=== PATIENT | female | born 1945 | race Caucasian/White ===

== ENCOUNTER 2017-01-11 18:07 | Observation (INO) | payer MEDICARE, OTHER ==
[~2017-01-11] VITALS: Ht 157.5 cm; Wt 87.3 kg
--- NOTE | ~2017-01-11 | CN ---
Consultation Report [facility] [address] [place]. [address] NAME: RAEGAN SUAZO : 49 STATUS : ADM Zelda PAT#: [id number] AGE: 71 ADM/REG DATE : 01/11/17 MR#: [id number] REPORT SERV DATE: 01/12/17 DICTATED BY: MICKIE AGEE DATE: 01/12/17 REPORT STATUS : Draft TRANSCRIBED BY: MODL DATE: 01/12/17 CARDIOLOGY CONSULTATION DATE OF CONSULTATION: 01/12/2017 REASON FOR CONSULTATION: Paroxysmal atrial fibrillation. HISTORY OF PRESENT ILLNESS: The patient is a 71-year-old female without known cardiac disease, who has had a one-week history of cold and flu-like symptoms with severe headache. She was seen by her primary care physician yesterday, who ordered a CT scan of the head due to headaches. While undergoing outpatient CAT scan, she had two syncopal episodes at [facility]. An electrocardiogram demonstrated atrial fibrillation with rapid ventricular rate. She was transferred to [facility] to the Hospitalist Service and consultation requested. In the interim, she has spontaneously converted to sinus rhythm. The patient denies any prior history of chest pain, palpitations, presyncope, or syncope. She denies dyspnea on exertion. The patient reports a two-week history of flu- like symptoms. These symptoms have essentially resolved by the time of admission. She is currently asymptomatic and feels well. PAST MEDICAL HISTORY: 1. Hypertension. 2. Diabetes mellitus. PAST SURGICAL HISTORY: No previous surgeries. SOCIAL HISTORY: Denies previous tobacco, alcohol, or illicit drug use. FAMILY HISTORY: Noncontributory. ALLERGIES: NO KNOWN DRUG ALLERGIES. HOME MEDICATIONS: Losartan and pioglitazone. REVIEW OF SYSTEMS: Negative for all organ systems, except per the history of present illness. PHYSICAL EXAMINATION: VITAL SIGNS: Pulse 68, blood pressure 131/66, respirations 12 and unlabored, saturating 94% on room air, weight 87 kg. GENERAL: Overweight elderly female, in no acute distress. HEENT: Normal. NECK: Supple. No JVD or bruit. Normal carotid upstroke bilaterally. No thyromegaly. LUNGS: Clear to auscultation and percussion. No wheezes, rales or rhonchi. No use of accessory muscles. Consultation Report [facility] [address] [place]. [address] NAME: RAEGAN SUAZO : 49 STATUS : ADM Zelda PAT#: [id number] AGE: 71 ADM/REG DATE : 01/11/17 MR#: [id number] REPORT SERV DATE: 01/12/17 DICTATED BY: MICKIE AGEE DATE: 01/12/17 REPORT STATUS : Draft TRANSCRIBED BY: MODRj DATE: 01/12/17 CARDIOLOGY: Regular rhythm. Normal S1, S2. No thrill. No murmur, rubs, or gallops. Normal PMI. ABDOMEN: Bowel sounds positive. Soft, nontender, and nondistended. No masses or aortic bruits. No hepatosplenomegaly or hepatojugular reflux. EXTREMITIES: No edema. Normal pulses. No clubbing or cyanosis. SKIN: Warm and dry. No significant rash. NEUROLOGIC: Alert and oriented x 3. Appropriate mood. LABORATORY DATA: Sodium 134, potassium 4, chloride 101, BUN 14, creatinine 0.68, glucose 119, magnesium 1.9. WBC 6.5; hemoglobin 11.6; hematocrit 34.2; platelets 268,000. Thyroid- stimulating hormone 3.03. EKG: EKG this morning, sinus rhythm at a rate of 71 beats per minute. Nonspecific T-wave changes are noted. Electrocardiogram performed at [facility] demonstrating atrial fibrillation with rapid ventricular rate at 156 beats per minute on presentation to that facility. IMPRESSION: Paroxysmal atrial fibrillation-now/currently in sinus rhythm with spontaneous conversion. Hemodynamically stable. CHADS2-VASc score is 4 (1 age, 1 gender, 1 diabetes mellitus, 1 hypertension). We have recommended chronic anticoagulation. In evaluation with her pharmacist, the novel oral anticoagulants are cost prohibitive. We therefore will begin warfarin. Due to her stroke risk score, we will begin weight-based Lovenox subcutaneous anticoagulation as a bridge with initiation of warfarin. The patient is hemodynamically and otherwise stable at this time. No contraindication to discharge today from a cardiovascular standpoint. She will follow up with Dr. Agee at [facility] on 02/01/2017 at 11:15 a.m. She will be scheduled in the [facility] for 01/16/2017 at 2:40 p.m. She has received my business card and has been made aware to contact me should she have any interval issues prior to her followup appointments. Her discharge medications in addition to the Lovenox bridge and warfarin 5 mg daily will also include carvedilol 6.25 mg b.i.d. Thank you for the opportunity to see the patient in consultation. MAURICIO/MANUELTIO Taylor Agee M.D. / [id number] CC: MD Lynda Chapman M.D.
--- NOTE | ~2017-01-11 | HP ---
History And Physical [facility] [address] [place]. [address] NAME: RAEGAN SUAZO : 49 STATUS : ADM Zelda PAT#: [id number] AGE: 71 ADM/REG DATE : 01/11/17 MR#: [id number] REPORT SERV DATE: 01/11/17 DICTATED BY: MOUNA ENAMORADO DATE: 01/11/17 REPORT STATUS : Draft TRANSCRIBED BY: MODRj DATE: 01/11/17 DATE OF ADMISSION: 01/11/2017 CHIEF COMPLAINT: Dizziness and elevated heart rate. HISTORY OF PRESENT ILLNESS: The patient is a 71-year-old female with past medical history of hypertension and prediabetes who comes in after having one-week history of flu, headache. Was sent for a CT by her PCP. Coming out of CT, noted to have two passing out episodes and heart rate up in the 150s. The patient's blood pressure was hypotensive at that time. The patient resolved pretty quickly. Was evaluated in the emergency room, improved with Cardizem p.o., and rate was converted. The patient requested to be transferred to [facility] secondary to campaign director, Dr. Qureshi. Upon further questioning, the patient reports that her flu has essentially been resolved, but has had decreased p.o. intake over the last week or two. Was told she may have had a urinary tract infection and also treated at an outside facility. Blood pressure and syncope episodes have all improved since heart rate is improved. Does have family history of heart issues on mother's side, but has never had this similar episode in the past. No chest pain. No shortness of breath currently. Did have headaches which are resolving. No nausea, vomiting, or diarrhea. Symptoms were improved after having Cardizem dose. Symptoms worsen with activity. The patient denies any swelling or coughing currently. REVIEW OF SYSTEMS: For additional 10-point review of systems, negative except for that noted in the HPI. PAST MEDICAL HISTORY: Diabetes and hypertension. SURGICAL HISTORY: None. Has had two natural deliveries. SOCIAL HISTORY: No smoking, alcohol, or illicits. Accompanied by at bedside. [place] and tries to live a healthy life. FAMILY HISTORY: Does have history of heart disease. ALLERGIES: NO KNOWN DRUG ALLERGIES. HOME MEDICATIONS: Actos and losartan. PHYSICAL EXAMINATION: VITAL SIGNS: Blood pressure last reported was 107/50s, current heart rate 78, respirations 14, afebrile, 100% on room air. GENERAL: No acute distress. Calm, pleasant, well developed, well nourished. EYES: No scleral icterus. EOMI. ENT: Nares patent. Tongue midline. Mildly dry mucous membranes. CHEST: Equal chest expansion. RESPIRATORY: Clear to auscultation. No wheezes or rales. CV: Regular rate. No rubs or gallops. 1:1 beat pulse ratio. No pedal edema. History And Physical [address] [address] NAME: RAEGAN SUAZO : 49 STATUS : ADM Zelda PAT#: [id number] AGE: 71 ADM/REG DATE : 01/11/17 MR#: [id number] REPORT SERV DATE: 01/11/17 DICTATED BY: MOUNA ENAMORADO DATE: 01/11/17 REPORT STATUS : Draft TRANSCRIBED BY: MANUELITO DATE: 01/11/17 GI: Soft, nontender, nondistended. Bowel sounds positive. NEURO: Alert and oriented. Moves all extremities x4. Symmetrical strength upper and lower extremities. Sensation is still grossly intact. SKIN: Warm and dry. HEME: No bleeding or bruising. PSYCH: Appropriate mood and affect. ABDOMEN: Soft, nontender, nondistended. Bowel sounds positive. LABORATORY DATA: Labs from outside facility, H and H 14.5 and 42.4, WBC 5.6, platelets of 320. Sodium 126, potassium 4.4, BUN and creatinine 19 and 1.3. Glucose of 142, bicarb 24.1 with chloride 93, BNP 325. Troponin less than 0.02. Lactic acid 3.7. Urinalysis noted for moderate leuk esterase. Chest x-ray from outside facility report shows no acute findings. EKG shows what appears to be atrial fibrillation at a rate of 156 at outside facility. QTc of 415. Currently appears normal sinus rate of 78. ASSESSMENT AND PLAN: 1. Atrial fibrillation with rapid ventricular response. 2. Hyponatremia. 3. Possible urinary tract infection. 4. Lactic acidosis. 5. Elevated brain natriuretic peptide. 6. Syncope. 7. Prediabetes and diabetes. 8. Recent flu. 9. Hypertension. PLAN: 1. For atrial fibrillation with rapid ventricular response, Coreg given at outside facility. Rate controlled. We will start on Lovenox and have Case Management evaluate for anticoagulation possibilities. We will defer to Cardiology for anticoagulation, as the patient's VERNON-Vasc currently runs at 4. We will also check TSH. The patient has had recent flu, which was likely a stimulating event, possible UTI. We will treat UTI and electrolyte abnormalities of hyponatremia. 2. For hyponatremia, IV fluids. Monitor and check bladder scan. Urine studies ordered. 3. Possible UTI. Rocephin started at outside facility. Continue. 4. Lactic acidosis. Check serial lactate. 5. Elevated BNP. Check echocardiogram. 6. Syncope secondary to hypotension with acute atrial fibrillation. Blood pressure responded well after rate controlled at [facility]. We will monitor orthostatics. 7. Prediabetes. Sliding scale insulin. Check A1c. Holding Actos currently. 8. Recent flu greater than five days ago. Appears to have resolved per patient. 9. Hypertension. Hold ARB secondary to recent low blood pressure. Of note, CT report for head, official report still pending that was done at [facility] available. We will try to upload to PACS for further note. History And Physical [address] [address] NAME: RAEGAN SUAZO : 49 STATUS : ADM Zelda PAT#: [id number] AGE: 71 ADM/REG DATE : 01/11/17 MR#: [id number] REPORT SERV DATE: 01/11/17 DICTATED BY: MOUNA ENAMORADO DATE: 01/11/17 REPORT STATUS : Draft TRANSCRIBED BY: MODRj DATE: 01/11/17 DDN/MANUELITO Mouna Enamorado MD / [id number] CC: MD Lynda Chapman M.D.
--- NOTE | ~2017-01-11 | DS ---
Discharge Summary [facility] [address] [place]. [address] NAME: RAEGAN SUAZO : 49 STATUS : DIS Zelda PAT#: [id number] AGE: 71 ADM/REG DATE : 01/11/17 MR#: [id number] REPORT SERV DATE: 01/12/17 DICTATED BY: VLADIMIR OBRIEN DATE: 01/12/17 REPORT STATUS : Draft TRANSCRIBED BY: MODL DATE: 01/12/17 ADMISSION DATE: 01/11/2017 DISCHARGE DATE: 01/12/2017 DISCHARGE DIAGNOSES: 1. Atrial fibrillation with rapid ventricular response. 2. Syncopal episode. 3. Hyponatremia. 4. Urinary tract infection, ruled out. 5. Lactic acidosis, resolved. 6. Prediabetes. 7. Recent flu. 8. Hypertension. CONSULTANTS: Cardiology, Taylor Agee M.D. PROCEDURES: None. HOSPITAL COURSE: This is a 71-year-old lady who was admitted to the hospital with initial diagnosis of AFib with RVR as well as a syncopal episode. For details, please refer to excellent H and P dictated by Dr. Gamez. In summary, by the time the patient was admitted to our facility, the patient's heart rate was already controlled. The patient was seen by Cardiology, and around that time, the patient was given a dose of Cardizem and she actually converted back to sinus. At that point in time, there was nothing more that needed to be done, and thus, the patient was simply started on Coumadin with Lovenox bridging. The patient is also started on low-dose Coreg. Echocardiogram was performed, which was benign. The patient is now being discharged home with close outpatient followup plans with Dr. Agee. Of note, the patient's UA was initially positive on admission, but she was asymptomatic and the patient never developed fever or leukocytosis, and thus it is likely that the patient simply had an asymptomatic bacteriuria. Also, the patient had lactose acidosis, which spontaneously resolved. The patient's hyponatremia, which was benign to begin with, remained stable with discharge sodium level of 132. The patient is now being discharged home with close outpatient followup plans. DISPOSITION: Home. DISCHARGE MEDICATIONS: 1. Coreg 6.25 mg p.o. b.i.d. 2. Cozaar 50 mg p.o. daily. 3. Actos 15 mg p.o. daily. 4. Lovenox 80 mg subcu every 12 hours for five days. 5. Coumadin 5 mg p.o. q.h.s. FOLLOWUP: 1. Please follow up with PCP in the next one to two weeks. 2. Please follow up with [facility] Cardiology for regular followup as well as INR check next Discharge Summary [address] [place] [address] NAME: RAEGAN SUAZO : 49 STATUS : DIS Zelda PAT#: [id number] AGE: 71 ADM/REG DATE : 01/11/17 MR#: [id number] REPORT SERV DATE: 01/12/17 DICTATED BY: VLADIMIR OBRIEN DATE: 01/12/17 REPORT STATUS : Draft TRANSCRIBED BY: MANUELITO DATE: 01/12/17Sunday as scheduled. Total of 30 minutes spent in coordinating this patient's discharge today. VJ/MANUELITO Vladimir Obrien MD / [id number] CC: MD Lynda Chapman M.D.
[2017-01-11 21:53] LABS: BASOPHILS 0.3 %; BASOPHILS ABSOLUTE 0.02 10/3/uL (0.0-0.16); EOSINOPHILS 0.1 %; EOSINOPHILS ABSOLUTE 0.01 10/3/uL (0.0-0.53); HEMATOCRIT 40.9 % (36.0-48.0); HEMOGLOBIN 13.7 g/dL (12.0-16.0); IMMATURE GRANULOCYTES 0.3 %; IMMATURE GRANULOCYTES ABSOLUTE 0.02 10/3/uL (0.0-0.11); LYMPHOCYTES 19.8 %; LYMPHOCYTES ABSOLUTE 1.41 10/3/uL (0.67-4.30); MEAN CORPUS HGB CONC 33.5 g/dL (32.0-36.0); MEAN CORPUSCULAR HEMOGLOB 29.4 pg (26.0-34.0); MEAN CORPUSCULAR VOLUME 87.8 fL (80-100); MEAN PLATELET VOLUME 10.6 fL (9.2-13.0); MONOCYTES 7.7 %; MONOCYTES ABSOLUTE 0.55 10/3/uL (0.21-1.20); NEUTROPHILS 71.8 %; NEUTROPHILS ABSOLUTE 5.11 10/3/uL (2.02-8.40); PLATELET COUNT 295 10/3/uL (150-400); RBC DISTRIBUTION WIDTH 13.5 % (12.0-16.0); RED CELL COUNT 4.66 10/6/uL (4.0-5.6); WHITE BLOOD CELLS 7.1 10/3/uL (4.5-10.5)
[2017-01-11 21:54] LABS: MANUAL DIFF NO %
[2017-01-11 22:15] LABS: B NATRIURETIC PEPTIDE (BNP) 54.5 PG/ML (< 100.0)
[2017-01-11 22:16] LABS: A/G RATIO 0.9 (0.7-1.9); ALBUMIN 3.2 G/DL (3.5-5.0); ALKALINE PHOSPHATASE 88 U/L (45-117); CHLORIDE, SERUM 99 MMOL/L (96-112); CO2 (CARBON DIOXIDE) 24 MMOL/L (24-34); CREATININE 0.83 MG/DL (0.55-1.02); FREE T4 1.39 NG/DL (0.76-1.46); GFR AFRICAN AMERICAN 83 ML/MIN (>=60); GFR NON AFRICAN AMERICAN 72 ML/MIN (>=60); GLOBULIN 3.7 G/DL (2.5-4.1); PHOSPHORUS, SERUM 3.6 MG/DL (2.5-4.5); POTASSIUM, SERUM 4.1 MMOL/L (3.5-5.3); SGOT(AST) 13 U/L (5-40); SGPT(ALT) 26 U/L (5-65); SODIUM, SERUM 130 MMOL/L (135-148); TOTAL BILIRUBIN 0.4 MG/DL (0-1.2); TOTAL PROTEIN 6.9 G/DL (6.0-8.5); TROPONIN I <0.02 NG/ML (<0.05)
[2017-01-11 22:18] LABS: BUN (BLOOD UREA NITROGEN) 16 MG/DL (6-23); CALCIUM, SERUM 8.6 MG/DL (8.5-10.4); GLUCOSE, SERUM 131 MG/DL (60-99)
[2017-01-11 23:02] LABS: PROCALCITONIN 0.07 ng/mL (<0.5)
[2017-01-12 05:33] LABS: ASCORBIC ACID (UR NOT ORDER) NEG (NEG); BILIRUBIN, URINE NEGATIVE (NEG); KETONE, URINE NEGATIVE (NEG); LEUKOCYTE ESTERASE(NOT OR LARGE (NEG); WBC (NOT ORDERED) (RFLEX) 14 (0-5)
[2017-01-12 06:51] LABS: BUN (BLOOD UREA NITROGEN) 14 MG/DL (6-23); CALCIUM, SERUM 8.2 MG/DL (8.5-10.4); CHLORIDE, SERUM 103 MMOL/L (96-112); CO2 (CARBON DIOXIDE) 22 MMOL/L (24-34); CREATININE 0.68 MG/DL (0.55-1.02); GFR AFRICAN AMERICAN 103 ML/MIN (>=60); GFR NON AFRICAN AMERICAN 89 ML/MIN (>=60); GLUCOSE, SERUM 119 MG/DL (60-99); SODIUM, SERUM 134 MMOL/L (135-148); TROPONIN I <0.02 NG/ML (<0.05)
[2017-01-12 06:54] LABS: BASOPHILS 0.5 %; BASOPHILS ABSOLUTE 0.03 10/3/uL (0.0-0.16); EOSINOPHILS 1.4 %; EOSINOPHILS ABSOLUTE 0.09 10/3/uL (0.0-0.53); HEMOGLOBIN 11.6 g/dL (12.0-16.0); IMMATURE GRANULOCYTES 0.2 %; IMMATURE GRANULOCYTES ABSOLUTE 0.01 10/3/uL (0.0-0.11); LYMPHOCYTES 29.4 %; LYMPHOCYTES ABSOLUTE 1.92 10/3/uL (0.67-4.30); MEAN CORPUS HGB CONC 33.9 g/dL (32.0-36.0); MEAN CORPUSCULAR HEMOGLOB 29.6 pg (26.0-34.0); MEAN CORPUSCULAR VOLUME 87.2 fL (80-100); MEAN PLATELET VOLUME 10.5 fL (9.2-13.0); MONOCYTES ABSOLUTE 0.52 10/3/uL (0.21-1.20); NEUTROPHILS 60.5 %; NEUTROPHILS ABSOLUTE 3.96 10/3/uL (2.02-8.40); PLATELET COUNT 268 10/3/uL (150-400); RBC DISTRIBUTION WIDTH 13.6 % (12.0-16.0); RED CELL COUNT 3.92 10/6/uL (4.0-5.6); WHITE BLOOD CELLS 6.5 10/3/uL (4.5-10.5)
[2017-01-12 06:57] LABS: HEMATOCRIT 34.2 % (36.0-48.0); MANUAL DIFF NO %
[2017-01-12 11:22] LABS: INFLUENZA A SCREEN NEGATIVE (NEGATIVE); INFLUENZA B SCREEN NEGATIVE (NEGATIVE)
[2017-01-12] MEDS ORDERED: ACTOS15 PO (12:48)
[2017-01-12] MEDS ORDERED: COZ50 PO (12:48)
[2017-01-12 13:49] LABS: INTERNATIONAL NORMAL RATI 1.2 UNITS (-); PROTIME (NOT ORD) 15.2 SEC (12.0-14.5)
[2017-01-12 13:59] LABS: BUN (BLOOD UREA NITROGEN) 13 MG/DL (6-23); CALCIUM, SERUM 8.3 MG/DL (8.5-10.4); CHLORIDE, SERUM 100 MMOL/L (96-112); CO2 (CARBON DIOXIDE) 25 MMOL/L (24-34); CREATININE 0.75 MG/DL (0.55-1.02); GFR AFRICAN AMERICAN 94 ML/MIN (>=60); GFR NON AFRICAN AMERICAN 81 ML/MIN (>=60); GLUCOSE, SERUM 123 MG/DL (60-99); POTASSIUM, SERUM 3.9 MMOL/L (3.5-5.3); SODIUM, SERUM 132 MMOL/L (135-148); TROPONIN I <0.02 NG/ML (<0.05)
[2017-01-12] MEDS ORDERED: COREG6 PO (16:28)
[2017-01-12] MEDS ORDERED: LOVENOX80 SC (16:28)
[2017-01-12] MEDS ORDERED: JANTOVEN5 MG PO (16:29)
== END 2017-01-12 18:13 | disposition home or self-care (01) ==
LOC: ENRESERV → ENRESERVDT → ENRESERVTM → 6NO 20:09
PROVIDERS: Internal Medicine; Student in an Organized Health Care Education/Training Program
DX: I48.0 Paroxysmal atrial fibrillation (principal); E87.1 Hypo-osmolality and hyponatremia; E87.2 Acidosis; R55 Syncope and collapse; I10 Essential (primary) hypertension; E11.9 Type 2 diabetes mellitus without complications; N39.0 Urinary tract infection, site not specified; Z79.899 Other long term (current) drug therapy
CPT/HCPCS: 71020; 80048; 80053; 81001; 82570; 82962; 83605; 83735; 83880; 83930; 83935; 84100; 84145; 84300; 84439; 84443; 84484; 85025; 85610; 87086; 87804; 93005; 93306; 96372; 96374; A9270-GY; G0378